=== PATIENT | male | born 1950 | race Two or more races ===

== ENCOUNTER 2016-05-16 06:03 | Observation (INO) | payer OTHER ==
--- NOTE | 2016-04-26 15:06 | GHP ---
[f rep st] HISTORY AND PHYSICAL DATE OF ADMISSION: 05/16/2016. This is for upcoming surgery May 16, 2016. HISTORY OF PRESENT ILLNESS: The patient is a 66-year-old male who comes to our office for the first time for evaluation of a palpable mass over his abdomen. He knows he is aware he has had an upper abdominal hernia since laparotomy for gastric volvulus in 2005. Patient is newly , and his is encouraging him to get it fixed. PAST MEDICAL HISTORY: None. MEDICATIONS: Flomax. PAST SURGICAL HISTORY: Includes laparotomy for hiatal hernia and gastric volvulus, left hand tendon repair. ALLERGIES: No known drug allergies. SOCIAL HISTORY: Never smoker. Occasional alcohol use. Recently . REVIEW OF SYSTEMS: He had a negative 10 point review of systems. PHYSICAL EXAM: GENERAL: The patient is a well-nourished, well-developed male, in no apparent distress. HEAD AND NECK: Normocephalic, atraumatic. CHEST: CTA bilaterally. HEART: Regular rhythm and rate. ABDOMEN: There is a large reducible upper midline hernia with a satellite hernia in the epigastric region , well-healed scar, soft, reducible. EXTREMITIES: No lower extremity edema. Normal dorsalis pedis pulses to palpation. IMPRESSION: A 66-year-old male with an incisional hernia/ventral hernia. RECOMMENDATION: Open ventral hernia repair with mesh was discussed with the patient in detail including risks of recurrence, bowel injury, infection, nerve injury, bleeding. The patient elects to proceed with scheduling for May. /[id number]/MODL MTDD
[~2016-05-16 06:03] MED LIST: CEFAZOLIN 2 GM/DEXTROSE/100 ML BAG IV ONE; LIDOCAINE 1% 5 ML SDV ONE
[2016-05-16] MEDS ORDERED: LR 1,000 ML IV SCH (06:30)
[2016-05-16] MEDS ORDERED: BUPIVACAINE 0.5% 30 ML SDV ONE (07:01)
[2016-05-16] MEDS ORDERED: MIDAZOLAM 2 MG/2 ML VIAL ONE (07:32)
[2016-05-16] MEDS ORDERED: PROPOFOL 200 MG/20 ML VIAL ONE ×2 (07:37)
[2016-05-16] MEDS ORDERED: fentaNYL 100 MCG/2 ML INJ ONE ×2 (07:37→09:45)
[2016-05-16] MEDS ORDERED: LIDOCAINE 2% 100 MG/5 ML SYR IVP ONE (07:40)
[2016-05-16] MEDS ORDERED: ROCURONIUM 50 MG/5 ML VIAL ONE (07:41)
[2016-05-16] MEDS ORDERED: epHEDrine SULFATE 10 MG/ML SYR ONE (08:05)
[2016-05-16] MEDS ORDERED: ROPIVACAINE HCL 150 MG/30 ML INJ ONE ×2 (08:25)
[2016-05-16] MEDS ORDERED: ONDANSETRON 4 MG/2 ML VIAL ONE (08:25)
[2016-05-16] MEDS ORDERED: DEXAMETHASONE 4 MG/ML VIAL ONE (08:25)
[2016-05-16] MEDS ORDERED: clonIDINE 1 MG/10 ML VIAL EP ONE (08:25)
[2016-05-16] MEDS ORDERED: SUGAMMADEX SODIUM 200 MG/2 ML VIAL IVP ONE (09:20)
[2016-05-16] MEDS ORDERED: HYDROmorphONE/DILAUDID 2 MG/ML SYR ONE (09:45)
[2016-05-16] MEDS ORDERED: KETOROLAC 30 MG/1 ML SDV ONE (10:01)
[2016-05-16] MEDS ORDERED: OXYCODONE/APAP 5/325 TAB ONE ×2 (10:25→10:50)
[2016-05-16] MEDS ORDERED: PROMETHAZINE HCL 25 MG/ML INJ ONE (10:52)
[2016-05-16] MEDS ORDERED: ONDANSETRON 4 MG/2 ML VIAL IVP PRN (11:27)
[2016-05-16] MEDS ORDERED: ACETAMINOPHEN 325 MG TAB PO PRN (11:27)
[2016-05-16] MEDS ORDERED: HYDROmorphONE/DILAUDID 1 MG/ML SYR IVP PRN (11:27)
[2016-05-16] MEDS ORDERED: D5W 1/2 NS W/ 20 KCl/L 1,000 ML IV SCH (11:30)
[2016-05-16] MEDS ORDERED: cefOXitin SODIUM 1 GM in D5W 50 ML IV SCH (12:00)
[2016-05-16] MEDS: ceFAZolin 2 GM/DEXTROSE 100 ML IV SCH ×2 (14:24→21:49)
[2016-05-16 14:30] VITALS: RESP 16
--- NOTE | 2016-05-16 16:08 | POSTOPPROG ---
Post Op Note Date of Operation: 05/16/16 Surgeon: Anirudh Paige Tank Builder Helper: Gagandeep Doe Anesthesiologist: Dr Padilla Anesthesia: GET(General Endotracheal) Pre-op Diagnosis: ventral hernia Post-op Diagnosis: same Indication: pain Procedure: open ventral hernia repair with mesh Findings: large hernia Inf/Abcess present in the surg proc area at time of surgery?: No Depth: Organ Space EBL: Minimal Drains: Tao Null Specimen(s): hernia sac
[2016-05-16] MEDS: HYDROCODONE/APAP 5/325 TAB PO PRN (21:49)
[2016-05-17] MEDS: HYDROCODONE/APAP 5/325 TAB PO PRN ×2 (05:06→09:56)
[2016-05-17] MEDS: ceFAZolin 2 GM/DEXTROSE 100 ML IV SCH (05:08)
[2016-05-17 08:05] VITALS: BP 147/97; PULSE 73; TEMP 98.4; O2SAT 94
== END 2016-05-17 11:08 | disposition home or self-care (01) ==
LOC: FSGY 06:03 → F3E 11:04
PROVIDERS: ADMIT Surgery; ATTEND Surgery
PROC: 0WUF0JZ Supplement Abdominal Wall with Synthetic Substitute, Open Approach (ICD-10-PCS; principal; 2016-05-16 07:39)
DX: K43.2 Incisional hernia without obstruction or gangrene (principal)
CPT/HCPCS: 49560; 49568; G0378; C1781; J0690; J0735; J1100; J1170; J1885; J2001; J2250; J2405; J2550; J2704; J2795; J3010

== ENCOUNTER 2016-06-27 05:41 | Day surgery (SDC) | payer OTHER ==
[2016-06-27] MEDS ORDERED: ceFAZolin 2 GM/DEXTROSE 100 ML IV ONE (06:30)
[2016-06-27] MEDS ORDERED: BUPIVACAINE 0.5% 30 ML SDV ONE (06:38)
[2016-06-27] MEDS ORDERED: KETOROLAC 30 MG/1 ML SDV ONE (07:05)
[2016-06-27] MEDS ORDERED: LIDOCAINE 2% 5 ML SDV ONE (07:05)
[2016-06-27] MEDS ORDERED: ONDANSETRON 4 MG/2 ML VIAL ONE (07:05)
[2016-06-27] MEDS ORDERED: ROCURONIUM 50 MG/5 ML VIAL ONE (07:05)
[2016-06-27] MEDS ORDERED: DEXAMETHASONE 4 MG/ML VIAL ONE (07:05)
[2016-06-27] MEDS ORDERED: PROPOFOL 200 MG/20 ML VIAL ONE (07:06)
[2016-06-27] MEDS ORDERED: fentaNYL 100 MCG/2 ML INJ ONE (07:06)
[2016-06-27] MEDS ORDERED: MIDAZOLAM 2 MG/2 ML VIAL ONE (07:12)
[2016-06-27] MEDS ORDERED: epHEDrine SULFATE 10 MG/ML SYR ONE (07:30)
[2016-06-27] MEDS ORDERED: PHENYLEPHRINE HCL 100 MCG/ML SYR ONE (07:34)
[2016-06-27] MEDS ORDERED: SUGAMMADEX SODIUM 200 MG/2 ML VIAL IVP ONE (07:49)
--- NOTE | 2016-06-27 07:51 | POSTOPPROG ---
Post Op Note Date of Operation: 06/27/16 Surgeon: Anirudh Paige Literary Agent: Navjot Doe PA-C Anesthesiologist: Herbert Erazo MD Anesthesia: GET(General Endotracheal) Pre-op Diagnosis: recurrent ventral incisional hernia Post-op Diagnosis: same Indication: pain Procedure: open ventral hernia repair with mesh Inf/Abcess present in the surg proc area at time of surgery?: No EBL: Minimal
[2016-06-27] MEDS ORDERED: cefOXitin SODIUM 2 GM in D5W 100 ML IV ONE (08:00)
== END 2016-06-27 09:30 | disposition home or self-care (01) ==
LOC: FSGY 05:41
PROVIDERS: ATTEND Surgery
PROC: 0WUF0JZ Supplement Abdominal Wall with Synthetic Substitute, Open Approach (ICD-10-PCS; principal; 2016-06-27 07:15)
DX: K43.2 Incisional hernia without obstruction or gangrene (principal)
CPT/HCPCS: C1781; J0690; J1100; J1885; J2250; J2370; J2405; J2704; J3010